=== PATIENT | male | born 1985 ===

== ENCOUNTER 2017-09-04 11:55 | Observation (INO) | payer OTHER ==
[2017-09-04] MEDS ORDERED: Sodium Chloride 0.9% 1,000 ML IV ONE (12:41)
[2017-09-04] MEDS ORDERED: Sodium Chloride 0.9% 1,000 ML ONE (12:52)
[2017-09-04 12:55] LABS: BASO # 0.1 K/uL (0.0-0.2); BASO % 0.4 % (0.0-2.0); HEMOGLOBIN 15.2 g/dL (12.0-18.0); LYMPH # 1.2 K/uL (1.0-4.3); LYMPH % 8.8 % (20.0-40.0); MEAN CELL VOLUME 89.7 fL (80.0-94.0); MEAN CORPUSCULAR HEMOGLOBIN 31.1 pg (27.0-31.0); MEAN CORPUSCULAR HGB CONC 34.7 g/dL (33.0-37.0); MONO % 6.7 % (0.0-10.0); NEUT # 11.9 K/uL (1.8-7.0); NEUT % 84.1 % (50.0-75.0); PLATELET COUNT 309 K/uL (130-400); RED CELL DISTRIBUTION WIDTH 12.9 % (11.5-14.5); WHITE BLOOD COUNT 14.2 K/uL (4.8-10.8)
[2017-09-04 13:05] LABS: ALB/GLOB RATIO 1.1 (1.0-2.1); ALBUMIN 4.8 g/dL (3.5-5.0); ALT/SGPT 32 U/L (21-72); AST/SGOT 28 U/L (17-59); BLOOD UREA NITROGEN 11 mg/dL (9-20); CALCIUM 9.5 mg/dl (8.6-10.4); GFR AFRICAN-AMERICAN > 60; GFR NON-AFRICAN AMERICAN > 60; LIPASE 80 U/L (23-300)
[2017-09-04] MEDS ORDERED: Piperacillin/Tazobact 3.375 gm 100 ML IV STA (13:07)
[2017-09-04 13:56] LABS: URINE BILIRUBIN NEGATIVE (NEGATIVE); URINE BLOOD NEGATIVE (NEGATIVE); URINE CLARITY Clear (Clear); URINE COLOR Yellow (YELLOW); URINE GLUCOSE (UA) NORMAL (Normal); URINE LEUKOCYTE ESTERASE NEG Leu/uL (Negative); URINE PROTEIN NEGATIVE (NEGATIVE); URINE UROBILINOGEN NORMAL mg/dL (0.2-1.0)
[2017-09-04 14:05] LABS: BANDS 4 % (0-2); LYMPHOCYTE 8 % (20-40); MONOCYTE 4 % (0-10); NEUTROPHIL 84 % (50-75); TOTAL CELLS COUNTED 100
[2017-09-04 14:06] LABS: PLATELET ESTIMATE NORMAL (NORMAL); STOMATOCYTES SLIGHT
[2017-09-04] MEDS ORDERED: Piperacillin/Tazobact 3.375 gm 100 ML IVPB ONE (14:22)
--- NOTE | 2017-09-04 14:30 | C.PDOC ---
History Of Present Illness 31 y/o male with no PMH presents to ED with c/o right sided abdominal pain since last night associated with fever and nausea. Patient admits to not taking any medication for symptoms. Denies vomiting, diarrhea, dysuria, hematuria or any other complaints at this time. Time Seen by Provider: 09/04/17 12:41 Chief Complaint (Nursing): Abdominal Pain History Per: Patient History/Exam Limitations: no limitations Onset/Duration Of Symptoms: Days Current Symptoms Are (Timing): Still Present Location Of Pain/Discomfort: RUQ, RLQ Radiation Of Pain To:: None Past Medical History Reviewed: Historical Data, Nursing Documentation, Vital Signs Vital Signs: Last Vital Signs Temp 98.8 F 09/04/17 18:08 Pulse 96 H 09/04/17 18:08 Resp 18 09/04/17 18:08 BP 130/84 09/04/17 18:08 Pulse Ox 99 09/04/17 18:08 - Medical History PMH: No Chronic Diseases Surgical History: No Surg Hx Family History: States: No Known Family Hx - Social History Hx Alcohol Use: No Hx Substance Use: No Review Of Systems Constitutional: Positive for: Fever. Negative for: Chills Gastrointestinal: Positive for: Nausea, Abdominal Pain. Negative for: Vomiting , Diarrhea Genitourinary: Negative for: Dysuria Skin: Negative for: Rash Physical Exam - Physical Exam Appears: Non-toxic, No Acute Distress Skin: Warm, Dry, No Rash Head: Atraumatic, Normacephalic Eye(s): bilateral: Normal Inspection, EOMI Nose: Normal Oral Mucosa: Moist Neck: Normal ROM, Supple Cardiovascular: Rhythm Regular, Other (Tachycardic) Respiratory: Normal Breath Sounds, No Accessory Muscle Use, No Rales, No Rhonchi , No Wheezing Gastrointestinal/Abdominal: Soft, Tenderness (Right sided ), No Guarding, Rebound Back: No CVA Tenderness Extremity: Normal ROM, Capillary Refill (<2 seconds) Neurological/Psych: Oriented x3, Normal Speech, Normal Cognition ED Course And Treatment - Laboratory Results Result Diagrams: 09/04/17 12:49 09/04/17 12:49 O2 Sat by Pulse Oximetry: 98 (RA) Pulse Ox Interpretation: Normal - CT Scan/US Abd/pelvis Other Rad Studies (CT/US): Read By Radiologist, Radiology Report Reviewed CT/US Interpretation: PROCEDURE: CT Abdomen and Pelvis with contrast. HISTORY : abd pain. COMPARISON: None. TECHNIQUE: Contrast dose: 100 mL Visipaque 320. Radiation dose: Total exam DLP = 600.99 mGy-cm. This CT exam was performed using one or more of the following dose reduction techniques: Automated exposure control, adjustment of the mA and/or kV according to patient size, and/or use of iterative reconstruction technique. FINDINGS: LOWER THORAX : Unremarkable. LIVER: Unremarkable. No gross lesion or ductal dilatation. GALLBLADDER AND BILE DUCTS: Unremarkable. PANCREAS: Unremarkable. No gross lesion or ductal dilatation. SPLEEN: Unremarkable. Progress Note: CT abd/pelvis, Blood work ordered. Motrin and Tazobactran administered. On re-evaluation, pt notes pain improved. Case discussed with residential mortgage underwriter who evaluated pt at [facility] and instructs admission under Dr Myles service. Disposition - Disposition Disposition: HOSPITALIZED Disposition Time: 16:20 Condition: STABLE - Clinical Impression Clinical Impression: Appendicitis - PA / MEDICAL OFFICE ADMINISTRATOR / Resident Statement MD/DO has reviewed & agrees with the documentation as recorded. - Scribe Statement The provider has reviewed the documentation as recorded by the Alexis Rees All medical record entries made by the Alexis were at my direction and personally dictated by me. I have reviewed the chart and agree that the record accurately reflects my personal performance of the history, physical exam, medical decision making, and the department course for this patient. I have also personally directed, reviewed, and agree with the discharge instructions and disposition.
[2017-09-04] MEDS ORDERED: Iodixanol 320 MG/ML 100 ML BOTTLE IV ONE (15:15)
--- NOTE | 2017-09-04 15:50 | CT ---
PROCEDURE: CT Abdomen and Pelvis with contrast HISTORY: abd pain COMPARISON: None. TECHNIQUE: Contrast dose: 100 mL Visipaque 320 Radiation dose: Total exam DLP = 600.99 mGy-cm. This CT exam was performed using one or more of the following dose reduction techniques: Automated exposure control, adjustment of the mA and/or kV according to patient size, and/or use of iterative reconstruction technique. FINDINGS: LOWER THORAX: Unremarkable. LIVER: Unremarkable. No gross lesion or ductal dilatation. GALLBLADDER AND BILE DUCTS: Unremarkable. PANCREAS: Unremarkable. No gross lesion or ductal dilatation. SPLEEN: Unremarkable. ADRENALS: Unremarkable. No mass. KIDNEYS AND URETERS: Unremarkable. No hydronephrosis. No solid mass. VASCULATURE: Unremarkable. No aortic aneurysm. BOWEL: Unremarkable. No obstruction. No gross mural thickening. APPENDIX: Appendix distended with fluid up to a diameter approximately 9 mm. Periappendiceal inflammatory change. Findings consistent with acute appendicitis. No periappendiceal abscess. No pneumoperitoneum. PERITONEUM: Unremarkable. No free fluid. No free air. LYMPH NODES: Unremarkable. No enlarged lymph nodes. BLADDER: Unremarkable. REPRODUCTIVE: Normal prostate BONES: No acute fracture. OTHER FINDINGS: None. IMPRESSION: Findings consistent with acute uncomplicated appendicitis. No periappendiceal abscess. No free air. Otherwise unremarkable examination
--- NOTE | 2017-09-04 17:35 | CP.PCM.HP ---
History of Present Illness - History of Present Illness History of Present Illness: Surgery: Dr. Tipton Pt is a 31M with no significant PMHx who presented to for complaints of abdominal pain x 1 day. Pt states pain started last night, was diffuse and is now localized to the RLQ. Pt denies having similar pain in the past. Denies associated N/V, F/C. In the ER, pt had a CT abdomen/pelvis which showed dilated appendix 9mm with inflammation consistent with acute appendicitis. Surgery called to evaluate. PMHx: denies PSHx: denies SocialHx: denies smoking/EtOH/drugs Present on Admission - Present on Admission Any Indicators Present on Admission: No Review of Systems - Review of Systems All systems: reviewed and no additional remarkable complaints except (as per HPI ) Past Patient History - Past Social History Smoking Status: Never Smoked - PSYCHIATRIC Hx Substance Use: No - SURGICAL HISTORY Hx Surgeries: No - ANESTHESIA Hx Anesthesia: No Meds Allergies/Adverse Reactions: Allergies Allergy/AdvReac Type Severity Reaction Status Date / Time No Known Allergies Allergy Unverified 09/04/17 12:09 Physical Exam - Constitutional Appears: No Acute Distress - Head Exam Head Exam: ATRAUMATIC, NORMOCEPHALIC - Eye Exam Eye Exam: Normal appearance - ENT Exam ENT Exam: Mucous Membranes Moist - Respiratory Exam Respiratory Exam: NORMAL BREATHING PATTERN - Cardiovascular Exam Cardiovascular Exam: RRR - GI/Abdominal Exam GI & Abdominal Exam: Rebound, Soft, Tenderness (RLQ). absent: Distended - Neurological Exam Neurological exam: Alert, Oriented x3 - Skin Skin Exam: Dry, Warm Results - Vital Signs Recent Vital Signs: Last Vital Signs Temp 99.2 F 09/04/17 15:32 Pulse 98 H 09/04/17 15:32 Resp 18 09/04/17 15:32 BP 110/71 09/04/17 15:32 Pulse Ox 98 09/04/17 16:25 - Labs Result Diagrams: 09/04/17 12:49 09/04/17 12:49 Labs: Laboratory Results - last 24 hr 09/04/17 09/04/17 09/04/17 12:40 12:49 12:49 WBC 14.2 H RBC 4.90 Hgb 15.2 Hct 43.9 MCV 89.7 MCH 31.1 H MCHC 34.7 RDW 12.9 Plt Count 309 MPV 9.0 Neut % (Auto) 84.1 H Lymph % (Auto) 8.8 L [place] % (Auto) 6.7 Eos % (Auto) 0.0 Baso % (Auto) 0.4 Neut # (Auto) 11.9 H Lymph # (Auto) 1.2 [place] # (Auto) 1.0 H Eos # (Auto) 0.0 Baso # (Auto) 0.1 Neutrophils % (Manual) 84 H Band Neutrophils % 4 H Lymphocytes % (Manual) 8 L Monocytes % (Manual) 4 Platelet Estimate Normal Stomatocytes Slight Sodium 139 Potassium 4.1 Chloride 100 Carbon Dioxide 24 Anion Gap 19 BUN 11 Creatinine 0.8 Est GFR ( Amer) > 60 Est GFR (Non-Af Amer) > 60 Random Glucose 102 Calcium 9.5 Total Bilirubin 0.9 AST 28 ALT 32 Alkaline Phosphatase 107 Total Protein 9.3 H Albumin 4.8 Globulin 4.5 H Albumin/Globulin Ratio 1.1 Lipase 80 Urine Color Yellow Urine Clarity Clear Urine pH 7.0 Ur Specific [place] 1.020 Urine Protein Negative Urine Glucose (UA) Normal Urine Ketones Trace Urine Blood Negative Urine Nitrate Negative Urine Bilirubin Negative Urine Urobilinogen Normal Ur Leukocyte Esterase Neg Urine WBC (Auto) 2 Urine RBC (Auto) < 1 - Imaging and Cardiology CT scan - abdomen Status: Image reviewed by me, Report reviewed by me Assessment & Plan - Assessment and Plan (Free Text) Assessment: 31M with acute appendicitis Plan: - OR for lap appy - Keep NPO with IVF - pain management - d/w Dr. Saeed Weinstein, PGY-3
[2017-09-04] MEDS: Lactated Ringer's 1,000 ML IV SCH (18:09)
[2017-09-04] MEDS ORDERED: Lidocaine/Epinephrine 1% 1:100000 10 ML IJ ONE (18:27)
[2017-09-04] MEDS ORDERED: Bupivacaine HCl 0.5% PF (30 ml) Inj ONE (18:27)
[2017-09-04] MEDS ORDERED: Rocuronium 10 mg/ml (5 ml) ONE (18:39)
[2017-09-04] MEDS ORDERED: Succinylcholine Chloride 20 mg/ml Syr (5 ml) IV ONE (18:39)
[2017-09-04] MEDS ORDERED: Midazolam 2 MG/2 ML VIAL ONE (18:39)
[2017-09-04] MEDS ORDERED: Propofol 10 mg/ml Inj (20 ML) ONE (18:41)
[2017-09-04] MEDS ORDERED: Piperacillin/Tazobact 3.375 GM in Sodium Chloride 100 ML IVPB SCH (19:00)
[2017-09-04] MEDS ORDERED: HYDROmorphone 0.5 mg/0.5 ml ISec IVP PRN (19:28)
[2017-09-04] MEDS ORDERED: Neostigmine Methylsulfate 3mg/3ml Syringe IV ONE (19:35)
--- NOTE | 2017-09-04 19:58 | PCM.SURG1 ---
Surgeon's Initial Post Op Note - Surgeon's Notes Surgeon: Dr. Tipton Chair Mechanic: Dr. Weinstein PGY-3, Rahat Mcgrath MS3 Type of Anesthesia: General Endo Anesthesia Administered By: Dr. Fenton Pre-Operative Diagnosis: Acute appendicitis Operative Findings: See operative report Post-Operative Diagnosis: Same Operation Performed: Laparoscopic Appendectomy & umbilical hernia repair Specimen/Specimens Removed: appendix Estimated Blood Loss: EBL {In ML}: 18 Blood Products Given: N/A Drains Used: No Drains Post-Op Condition: Good Date of Surgery/Procedure: 09/04/17 Time of Surgery/Procedure: 19:58
[2017-09-04 23:00] VITALS: RESP 20
[2017-09-04] MEDS ORDERED: Morphine 4 MG/ML VIAL IVP PRN (23:45)
[2017-09-04 23:51] VITALS: BP 118/79; PULSE 109; TEMP 98.9
[2017-09-05] MEDS: Oxycodone/Acetaminophen 5/325 mg Tab PO PRN ×2 (00:35→07:09)
[2017-09-05] MEDS: Lactated Ringer's 1,000 ML IV SCH ×2 (00:42→03:30)
--- NOTE | 2017-09-05 03:11 | OP ---
DATE: 09/04/2017 PREOPERATIVE DIAGNOSIS: Acute appendicitis. POSTOPERATIVE DIAGNOSIS: Acute appendicitis. PROCEDURE PERFORMED: Laparoscopic appendectomy. SURGEON: Parag Tipton MD FINDINGS: The appendix was markedly swollen with fibrinous exudate, and it was fully located in the mesentery and right lower quadrant. There is no gross perforation noted. DESCRIPTION OF PROCEDURE: Under general anesthesia, the patient was prepared and draped in usual sterile fashion. Incidentally, the patient also has a hernia. An incision was made in the upper portion of the umbilicus. Dissection was carried out to mobilize the sac, and when it was mobilized, it was removed, and the fascial defect ____ to introduce the 12 mm trocar. CO2 was insufflated to about 15 mmHg pressure. A 5-mm suprapubic port and a 5 mm left lower quadrant ports were inserted. The patient was placed in a Trendelenburg position, turned over towards the left side. Appendix was identified. Initially, it was transected with the aid of the AutoSuture Model Endo MAGEN with white anastasiia. The patient's appendix was treated with bluish anastasiia. The appendix with the meso was placed in EndoCatch and was extracted through the umbilical port. Area was irrigated with large amount of saline solution, irrigating fluid suctioned out. CO2 allowed to escape from the peritoneal cavity. Trocar was removed. The wound was closed in a routine fashion. Estimated blood loss about 18 mL. No complications. Parag Tipton MD
[2017-09-05] MEDS ORDERED: ceFAZolin 1 gm in NS 0 GM/0 ML BAG IVPB ONE (07:30)
[2017-09-05 08:55] VITALS: O2SAT 99
== END 2017-09-05 10:49 | disposition home or self-care (01) ==
LOC: C.ER 11:55 → C.9E 16:52 → C.3T 18:03
PROVIDERS: ADMIT Surgery; ATTEND Surgery
DX: K35.80 Unspecified acute appendicitis (principal); K42.9 Umbilical hernia without obstruction or gangrene
CPT/HCPCS: 44970; 49652; 74177; 80053; 81001; 83690; 85025; 87040; 88302; 88304; 96360; 99285; G0378; J1885; J2001; J2250; J2543; J2704; J2710; J3010; J7040; J7120; Q9967